=== PATIENT | female | born 1960 | race Caucasian/White ===

== ENCOUNTER 2021-12-30 06:53 | Day surgery (SDC) | payer OTHER ==
[~2021-12-30] VITALS: Ht 170.2 cm; Wt 107.0 kg
[2021-12-30 09:08] VITALS: BP 124/76
== END 2021-12-30 09:27 | disposition home or self-care (01) | DRG 951 ==
LOC: ENDO 06:53
PROVIDERS: ATTEND Surgery
PROC: 0DJD8ZZ Inspection of Lower Intestinal Tract, Via Natural or Artificial Opening Endoscopic (ICD-10-PCS; principal; 2021-12-30)
DX: Z12.11 Encounter for screening for malignant neoplasm of colon (principal)